=== PATIENT | male | born 2000 | race Caucasian/White ===

== ENCOUNTER 2019-01-18 10:25 | Emergency (ER) | payer OTHER ==
[~2019-01-18] VITALS: Ht 185.4 cm; Wt 111.0 kg
[2019-01-18] MEDS ORDERED: SODIUM CHLORIDE 0.9% 1,000 ML IV ONE (10:46)
[2019-01-18 11:33] LABS: BASOPHILS % 0.6 % (0.0-2.0); EOSINOPHILS % 1.2 % (0.0-5.0); HEMATOCRIT. 46.9 % (42.0-52.0); HEMOGLOBIN. 16.7 g/dL (14.0-18.0); LYMPHOCYTES % 9.5 % (20.0-50.0); MEAN CORPUSCULAR HEMOGLOBIN 29.8 pg (28.0-32.0); MEAN CORPUSCULAR VOLUME 83.6 fL (80.0-94.0); MEAN PLATELET VOLUME 9.1 fl (7.4-10.4); MONOCYTES % 4.1 % (2.0-8.0); NEUTROPHILS % 84.6 % (40.0-76.0); PLATELET 190 x1000/uL (130-400); RED BLOOD CELL COUNT 5.61 mill/uL (4.7-6.1)
[2019-01-18 11:43] LABS: CHLORIDE 106 mEq/L (98-107)
[2019-01-18 11:50] LABS: ETHANOL BLOOD < 10 mg/dL
[2019-01-18] MEDS ORDERED: POTASSIUM CHLORIDE 20MEQ TABLET SR PO ONE (12:45)
[2019-01-18 12:57] LABS: *AMPHETAMINES SCREEN URINE NEGATIVE (NEGATIVE); *BARBITURATES SCREEN URINE NEGATIVE (NEGATIVE); *BENZODIAZEPINES SCREEN URINE NEGATIVE (NEGATIVE)
[2019-01-18 12:58] LABS: *COCAINE SCREEN URINE NEGATIVE (NEGATIVE); CANNABINOID URINE SCREEN PRESUMTIVE POSITIVE (NEGATIVE); METHADONE URINE SCREEN NEGATIVE (NEGATIVE); OPIATES URINE SCREEN NEGATIVE (NEGATIVE); PHENCYCLIDINE URINE SCREEN NEGATIVE (NEGATIVE)
[2019-01-18 14:45] VITALS: BP 142/84
== END 2019-01-18 14:51 | disposition home or self-care (01) ==
LOC: ER 10:25
DX: T40.601A Poisoning by unspecified narcotics, accidental (unintentional), initial encounter (principal); T40.2X1A Poisoning by other opioids, accidental (unintentional), initial encounter; F12.10 Cannabis abuse, uncomplicated; Y92.89 Other specified places as the place of occurrence of the external cause
CPT/HCPCS: 36415; 80053; 80305; 80320; 85025; 99283; J7030; G0480

== ENCOUNTER 2022-08-15 06:19 | Emergency (ER) | payer MEDICAID, OTHER ==
[~2022-08-15] VITALS: Ht 177.8 cm; Wt 110.0 kg
[2022-08-15] MEDS ORDERED: LORAZEPAM 2MG/ML CPJ IV ONE (07:45)
[2022-08-15 08:36] LABS: BASOPHILS % 0.3 % (0.0-2.0); HEMATOCRIT. 43.5 % (42.0-52.0); HEMOGLOBIN. 15.8 g/dL (14.0-18.0); LYMPHOCYTES % 10.4 % (20.0-50.0); MEAN CORPUSCULAR HEMOGLOBIN 30.3 pg (28.0-32.0); MEAN CORPUSCULAR VOLUME 83.6 fL (80.0-94.0); MEAN PLATELET VOLUME 8.6 fl (7.4-10.4); MONOCYTES % 5.3 % (2.0-8.0); PLATELET 252 x1000/uL (130-400); RED BLOOD CELL COUNT 5.21 mill/uL (4.7-6.1)
[2022-08-15 08:42] LABS: CHLORIDE 106 mEq/L (98-107)
[2022-08-15 08:52] LABS: INR 1.1; PARTIAL THROMBOPLASTIN TIME 28.2 sec (23.4-31.0)
[2022-08-15 10:00] VITALS: BP 111/71
== END 2022-08-15 11:57 | disposition home or self-care (01) ==
LOC: ER 06:19
DX: R07.89 Other chest pain (principal); F14.10 Cocaine abuse, uncomplicated; F17.210 Nicotine dependence, cigarettes, uncomplicated
CPT/HCPCS: 36415; 71045; 80053; 84484; 85025; 85610; 85730; 93005; 96374; 99285; J2060